=== PATIENT | female | born 1935 | race Caucasian/White ===

== ENCOUNTER 2019-02-08 07:05 | Day surgery (SDC) | payer OTHER ==
[~2019-02-08 07:05] MED LIST: ATORVASTATIN CA40 MG PO; CILOSTAZOL50 MG PO; METOPROLOL SUCC25 MG PO; ONGLYZA2.5 MG PO; SYNTHROID75 MCG PO; VITAMIN D310000 UNIT PO
[2019-02-08] MEDS ORDERED: PERCOCET 5-3251 EACH PO (10:49)
== END 2019-02-08 15:40 | disposition home or self-care (01) ==
LOC: CIR.AMB 07:05
DX: D35.1 Benign neoplasm of parathyroid gland (principal)